=== PATIENT | male | born 1965 | race Caucasian/White ===

== ENCOUNTER → 2023-06-12 09:11 | Outpatient (BNVA) | payer OTHER, SELFPAY | PROVIDERS: PCP Nurse Practitioner Family; Visit Provider Nurse Practitioner Family | DX: R05.9 Cough, unspecified (principal); R53.83 Other fatigue; J32.9 Chronic sinusitis, unspecified; J01.00 Acute maxillary sinusitis, unspecified | CPT/HCPCS: 87400; 87426 ==

== ENCOUNTER → 2023-12-16 11:00 | Outpatient (BNVA) | payer SELFPAY | PROVIDERS: PCP Nurse Practitioner Family; Visit Provider Dermatology | DX: Z01.89 Encounter for other specified special examinations (principal) ==